=== PATIENT | male | born 1970 | race Caucasian/White ===

== ENCOUNTER 2017-04-28 22:34 | Emergency (ER) | payer BC ==
[~2017-04-28] VITALS: Ht 175.3 cm; Wt 72.3 kg
[~2017-04-28 22:34] MED LIST: FLUO10CA48 PO
[2017-04-28 22:39] VITALS: TEMP 36.7; Ht 175.3 cm; Wt 72.3 kg
[2017-04-28] MEDS ORDERED: ONDANSETRON INJ 2 MG/ML 2 ML VIAL IV STA (23:10)
[2017-04-28] MEDS ORDERED: KETOROLAC TROMETHAMINE 30 MG/ML VIAL IV STA (23:10)
[2017-04-28] MEDS ORDERED: MoRPHine SULFATE 10 MG/ML CARP/VIAL IV STA (23:10)
[2017-04-28] MEDS ORDERED: SODIUM CHLORIDE 0.9% 1000ML 1,000 ML IV STA (23:11)
[2017-04-28 23:19] LABS: BASO % 0.3 %; BASO ABS # 0.03 K/uL (0-0.2); COMPLETE YES; EOS % 0.6 %; HEMATOCRIT 44.6 % (42-52); IG% 0.4 %; LYMPH % 30.7 %; LYMPH ABS # 3.45 K/uL (1.2-3.4); MEAN CELL VOLUME 89.9 fL (80-100); MEAN CORPUSCULAR HEMOGLOBIN 29.8 pg (25-34); MEAN CORPUSCULAR HGB CONC 33.2 g/dl (32-36); MEAN PLATELET VOLUME 9.8 fL (7.4-10.4); MONO % 7.3 %; NEUT % 60.7 %; PLATELET COUNT 230 K/uL (130-400); RED BLOOD COUNT 4.96 M/uL (4.7-6.1); WHITE BLOOD COUNT 11.25 K/uL (4.8-10.8)
[2017-04-28] MEDS ORDERED: MoRPHine SULFATE 4 MG/ML 1 ML CARP\\VIAL IV STA (23:28)
--- NOTE | 2017-04-28 23:28 | EMERGENCY ROOM VISIT NOTE ---
History Report prepared by Vianney: Juhi Valentin Under the Supervision of: Dr. Marcela Rodrigues D.O. First contact with patient: 23:02 Chief Complaint: BACK PAIN Stated Complaint: SIDE PAIN History of Present Illness The patient is a 46 year old male who presents to the Emergency Room with complaints of worsening back pain starting an hour ago. The patient states he gets some relief from curling up in a ball. He states it started early today as a dull pain and has progressively worsened. The patient complains of right side flank pain and nausea. The patient denies a history of kidney stones, a UTI, fever, and chills. He notes that he recently has been drinking plenty of water. Source of History: patient Onset: an hour ago Position: back Quality: dull Timing: worsening Modifying Factors (Relieving): other (curled in a ball) Associated Symptoms: + nausea, No fevers, No chills Note: The patient complains of right flank pain. Review of Systems See HPI for pertinent positives & negatives. A total of 10 systems reviewed and were otherwise negative. Past Medical & Surgical Medical Problems: (1) Colon polyps Family History Patient reports no known family medical history. Social History Smoking Status: Never Smoker Drug Use: none Marital Status: Housing Status: lives with family Occupation Status: employed Current/Historical Medications No Active Prescriptions or Reported Meds Allergies Coded Allergies: No Known Allergies (Unverified , 04/28/17) Physical Exam Vital Signs Date Time Temp Pulse Resp B/P (MAP) Pulse Ox O2 Delivery O2 Flow Rate FiO2 04/29/17 02:41 75 18 116/77 97 Room Air 04/29/17 01:33 80 18 116/77 96 Room Air 04/28/17 23:53 70 18 123/80 99 Room Air 04/28/17 22:39 36.7 106 18 141/61 98 Room Air Physical Exam General: Extremely uncomfortable appearing. Moaning in pain. Unable to sit still. HEENT: Head - normocephalic and atraumatic Pupils are equal, round, and reactive to light. Extraocular eye muscles are intact, and sclera are anicteric. Nose - moist nasal mucosa without discharge. Mouth - moist buccal mucosa. Oropharynx is nonerythematous and there is no tonsillar exudate or edema noted. Neck: Supple; no cervical lymphadenopathy. Heart: Regular rate and rhythm. There is a normal S1 and S2 with no murmurs, clicks, or gallops appreciated. Lungs: Clear to auscultation bilaterally with no wheezes, rales, or rhonchi. Abdomen: Soft, completely nontender, nondistended, with good bowel sounds. There are no palpable pulsatile masses or hepatosplenomegaly. There is no guarding, rigidity, or rebound noted. Extremities: No evidence of cyanosis, clubbing, or edema. There are easily palpable peripheral pulses. Skin: warm and dry with good turgor and no rashes. Medical Decision & Procedures ER Provider Diagnostic Interpretation: Radiology results as stated below per my review and the radiologist's interpretation: CT ABDOMEN & PELVIS Without Contrast: 3 mm bladder side right UVJ stone. Mild proximal obstructive changes with some dilatation of the right ureter and renal pelvis. No significant right hydronephrosis appreciated. Nonobstructive bilateral renal stones. No evidence for appendicitis. Nonemergent/incidental findings include suspected lower lumbar laminectomy. Radiologist: Roe Craft M.D. Study ready at 23:41 and initial results transmitted at 00:01. Laboratory Results 04/28/17 23:00 Red Blood Count 4.96, Mean Corpuscular Volume 89.9, Mean Corpuscular Hemoglobin 29.8, Mean Corpuscular Hemoglobin Concent 33.2, Mean Platelet Volume 9.8, Neutrophils (%) (Auto) 60.7, Lymphocytes (%) (Auto) 30.7, Monocytes (%) (Auto) 7.3, Eosinophils (%) (Auto) 0.6, Basophils (%) (Auto) 0.3, Neutrophils # (Auto) 6.84, Lymphocytes # (Auto) 3.45, Monocytes # (Auto) 0.82, Eosinophils # (Auto) 0.07, Basophils # (Auto) 0.03 04/28/17 23:00 Test 04/28/17 23:00 04/29/17 01:17 White Blood Count 11.25 K/uL (4.8-10.8) Red Blood Count 4.96 M/uL (4.7-6.1) Hemoglobin 14.8 g/dL (14.0-18.0) Hematocrit 44.6 % (42-52) Mean Corpuscular Volume 89.9 fL (80-100) Mean Corpuscular Hemoglobin 29.8 pg (25-34) Mean Corpuscular Hemoglobin Concent 33.2 g/dl (32-36) Platelet Count 230 K/uL (130-400) Mean Platelet Volume 9.8 fL (7.4-10.4) Neutrophils (%) (Auto) 60.7 % Lymphocytes (%) (Auto) 30.7 % Monocytes (%) (Auto) 7.3 % Eosinophils (%) (Auto) 0.6 % Basophils (%) (Auto) 0.3 % Neutrophils # (Auto) 6.84 K/uL (1.4-6.5) Lymphocytes # (Auto) 3.45 K/uL (1.2-3.4) Monocytes # (Auto) 0.82 K/uL (0.11-0.59) Eosinophils # (Auto) 0.07 K/uL (0-0.5) Basophils # (Auto) 0.03 K/uL (0-0.2) RDW Standard Deviation 38.9 fL (36.4-46.3) RDW Coefficient of Variation 12.0 % (11.5-14.5) Immature Granulocyte % (Auto) 0.4 % Immature Granulocyte # (Auto) 0.04 K/uL (0.00-0.02) Anion Gap 7.0 mmol/L (3-11) Est Creatinine Clear Calc Drug Dose 77.8 ml/min Estimated GFR () 84.1 Estimated GFR (Non- 72.6 BUN/Creatinine Ratio 16.6 (10-20) Calcium Level 9.4 mg/dl (8.5-10.1) Urine Color YELLOW Urine Appearance CLEAR (CLEAR) Urine pH 7.0 (4.5-7.5) Urine Specific Morgan 1.027 (1.000-1.030) Urine Protein NEG (NEG) Urine Glucose (UA) NEG (NEG) Urine Ketones 2+ (NEG) Urine Occult Blood 1+ (NEG) Urine Nitrite NEG (NEG) Urine Bilirubin NEG (NEG) Urine Urobilinogen NEG (NEG) Urine Leukocyte Esterase NEG (NEG) Urine WBC (Auto) 1-5 /hpf (0-5) Urine RBC (Auto) 10-30 /hpf (0-4) Urine Hyaline Casts (Auto) 1-5 /lpf (0-5) Urine Epithelial Cells (Auto) 5-10 /lpf (0-5) Urine Bacteria (Auto) NEG (NEG) Laboratory results per my review. Medications Administered Medications (Trade) Dose Ordered Sig/David Route Start Time Stop Time Status Last Admin Dose Admin Ketorolac Tromethamine (Toradol Inj) 30 mg NOW STAT IV 04/28/17 23:10 04/28/17 23:12 DC 04/28/17 23:21 30 MG Morphine Sulfate (MoRPHine SULFATE INJ) 4 mg NOW STAT IV 04/28/17 23:10 04/28/17 23:12 DC 04/28/17 23:20 4 MG Ondansetron HCl (Zofran Inj) 4 mg NOW STAT IV 04/28/17 23:10 04/28/17 23:12 DC 04/28/17 23:20 4 MG Sodium Chloride 1,000 ml @ 999 mls/hr Q1H1M STAT IV 04/28/17 23:11 04/29/17 00:11 DC 04/28/17 23:20 999 MLS/HR Morphine Sulfate (MoRPHine SULFATE INJ) 2 mg NOW STAT IV 04/28/17 23:28 04/28/17 23:29 DC 04/28/17 23:51 2 MG Oxycodone/ Acetaminophen (Percocet 5/ 325MG Home Pack) 1 homepack UD ONCE PO 04/29/17 02:30 04/29/17 02:31 DC 04/29/17 02:40 1 HOMEPACK Procedure 2310: Ordered Zofran Inj 4 mg IV, Morphine Sulfate 4 mg IV, Toradol Inj 30 mg IV. 2311: Ordered NSS 1000 ml @ 999 mls/hr IV. 2328: Ordered Morphine Sulfate 2 mg IV. 0230: Ordered Oxycodone/ Acetaminophen 1 homepack PO. ED Course 2309: Past medical records reviewed. The patient was evaluated in room C8. A complete history and physical exam was performed. An IV lock was initiated and labs were drawn as above. 2310: Ordered Zofran Inj 4 mg IV, Morphine Sulfate 4 mg IV, Toradol Inj 30 mg IV. 2311: Ordered NSS 1000 ml @ 999 mls/hr IV. 2326:I reevaluated the patient and he was still in pain. 2328: Ordered Morphine Sulfate 2 mg IV. He went to CT scan for evaluation of a kidney stone. 0106: I reevaluated the patient and he is much more comfortable. He does not have anymore pain and is going to give a urine specimen. 0132: I reevaluated the patient and he is still pain free. I reviewed the results of the CT scan with him. 0226: Upon reevaluation, he is resting comfortably. I discussed findings and results with him. He verbalized agreement of the treatment plan. The patient was discharged home. 0230: Ordered Oxycodone/ Acetaminophen 1 homepack PO. Medical Decision This is a 46-year-old male patient who presents to the emergency department with severe right flank pain. Differential diagnoses include ureter colic, pyelonephritis, diverticulitis, colitis. LABS: Urine 2+ ketones, 1+ blood Glucose 108 BUN 20 Creatine 1.2 White blood cell count 11.2 Stable H&H The patient presented with severe right flank pain. CT scan confirmed a right- sided ureteral stone. There were no signs of urinary tract infection. The patient was observed here in the ER for some time and had no return of the pain. This small 3 mm stone most likely passed in the bladder. However, the patient was given specific follow-up instructions if the pain returned. [place] Drug Monitoring [place] Search Results: no issues identified Impression Primary Impression: Right ureteral calculus Scribe Attestation The scribe's documentation has been prepared under my direction and personally reviewed by me in its entirety. I confirm that the note above accurately reflects all work, treatment, procedures, and medical decision making performed by me. Departure Information Dispostion Home / Self-Care Prescriptions No Active Prescriptions or Reported Meds Referrals No Doctor, Assigned (PCP) Forms HOME CARE DOCUMENTATION FORM, IMPORTANT VISIT INFORMATION Patient Instructions My [facility] Additional Instructions Rest. Take plenty of clear liquids No work on Tuesday Percocet - 1-2 tabs. every 4 hours for severe pian. Return to the ER for worsening symptoms like intractable pain, fever, or vomiting
[2017-04-28 23:38] LABS: BUN/CREATININE RATIO 16.6 (10-20); CALCIUM 9.4 mg/dl (8.5-10.1); CREATININE 1.2 mg/dl (0.60-1.40); POTASSIUM 3.4 mmol/L (3.5-5.1)
[2017-04-29 01:43] LABS: URINE APPEARANCE CLEAR (CLEAR); URINE BILIRUBIN NEG (NEG); URINE COLOR YELLOW; URINE NITRITE NEG (NEG); URINE SPECIFIC GRAVITY 1.027 (1.000-1.030); UROBILINOGEN NEG (NEG)
[2017-04-29 01:50] LABS: MANUAL MICROSCOPIC REQUIRED? NO; REVIEW REQ? NO
[2017-04-29] MEDS ORDERED: PERCOCET HOME PACK PO ONE (02:30)
[2017-04-29 02:41] VITALS: BP 116/77; PULSE 75; O2SAT 97
--- NOTE | 2017-04-29 07:54 | DIAGNOSTIC IMAGING REPORT ---
CT SCAN OF THE ABDOMEN AND PELVIS WITHOUT IV CONTRAST CLINICAL HISTORY: Right flank pain. COMPARISON STUDY: No priors. TECHNIQUE: CT scan of the abdomen and pelvis is performed from the lung bases to the proximal femora. Images are reviewed in the axial, sagittal, and coronal planes. IV contrast was not administered for this examination as per the referring clinician. A dose lowering technique was utilized adhering to the principles of ALARA. CT DOSE: 518.72 mGy.cm FINDINGS: Lung bases: The heart is normal in size and without pericardial effusion. The lung bases are clear. Liver: The unenhanced liver is normal in size, contour, and attenuation. There is no intrahepatic biliary ductal dilatation. Gallbladder: Unremarkable. Spleen: Normal in size and attenuation. Pancreas: The unenhanced pancreas is grossly unremarkable. Adrenal glands: Unremarkable. Kidneys: The unenhanced kidneys are normal in size. There is a 4 mm calculus either protruding from the right vesicoureteral junction are located within the bladder lumen seen on image #366. There is mild to moderate right hydroureteronephrosis. There is mild associated perinephric and periureteric stranding. There are at least 3 additional nonobstructing right renal calculi measuring up to 3 mm. There are at least 5 tiny nonobstructing left renal calculi. No left-sided hydronephrosis is seen. There is no evidence of contour deforming renal mass lesion. Abdominal vasculature: The abdominal aorta is normal in course and caliber. Bowel: The small bowel and colon are normal in course and caliber. The appendix is well-visualized and normal. Peritoneum: There is no intraperitoneal free air or abdominal ascites. There is a small fat-containing umbilical hernia. Lymphadenopathy: None. Pelvic viscera: The bladder, prostate, and seminal vesicles are normal as imaged.. Numerous phleboliths are identified. Skeletal structures: No lytic or blastic lesions are seen. There is a large posterior disc bulge seen at L4-L5. IMPRESSION: 1. There is a 4 mm calculus identified which either protrudes from the right vesicoureteral junction or is located in the bladder adjacent to the trigone with mild to moderate right hydroureteronephrosis. 2. Additional bilateral nonobstructing renal calculi as above. Electronically signed by: Fran Mishra M.D. 04/29/2017 7:53 AM Dictated Date/Time: 04/29/2017 7:47 AM
== END 2017-04-29 02:46 | disposition home or self-care (01) ==
LOC: C.EDB 22:35 → C.EDC 04-29 02:46
DX: N20.1 Calculus of ureter (principal); Z86.010 Personal history of colon polyps

== ENCOUNTER 2018-02-23 14:56 | Emergency (ER) | payer BC ==
[~2018-02-23] VITALS: Ht 175.3 cm; Wt 75.6 kg
[2018-02-23 15:00] VITALS: TEMP 36.7; Ht 175.3 cm; Wt 75.6 kg
[2018-02-23] MEDS ORDERED: DiphenhydrAMINE HCL 50 MG/ML VIAL IV STA (15:11)
[2018-02-23] MEDS ORDERED: RANITIDINE HCL 50 MG/100 ML D5W IV STA (15:11)
[2018-02-23] MEDS ORDERED: SODIUM CHLORIDE 0.9% 500ML 500 ML IV STA (15:11)
[2018-02-23] MEDS ORDERED: DEXAMETHASONE INJ 10 MG in SYRINGE 0 ML IV STA (15:11)
[2018-02-23] MEDS ORDERED: DEXAMETHASONE **PF** INJ 10 MG/ML VIAL ONE (15:25)
[2018-02-23] MEDS ORDERED: RANITIDINE IV 50 MG in DEXTROSE 5% 100ML 100 ML IV ONE (15:30)
[2018-02-23 15:34] VITALS: O2SAT 96
[2018-02-23 16:45] VITALS: BP 115/76; PULSE 61; O2SAT 96
[2018-02-23] MEDS ORDERED: METH4PAK PO (17:04)
[2018-02-23] MEDS ORDERED: EPP3/2 IM (17:04)
--- NOTE | 2018-02-24 01:34 | EMERGENCY ROOM VISIT NOTE ---
History First contact with patient: 15:04 Chief Complaint: ALLERGIC REACTION Stated Complaint: BEE STING REACTION Nursing Triage Summary: Patient was stung by two bees at 1400, one sting on left hand and one behind left knee. Localized swelling and itching per patient. Denies SOB or chest pain. 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 The patient reports that he was stung on the left hand and back of the left knee. The patient reports itching of his armpits and other areas of the body. He has not noticed any chest pain, shortness of breath , palpitations, lip/tongue/throat swelling or other concerning symptoms. The patient reports a remote history of bee sting as a child without any adverse reaction. He denies any other known seasonal, food or environmental allergies. He denies history of asthma or heart disease. He rates his localized discomfort a 3 out of 10. The patient did take Benadryl 25 mg prior to arrival , and has not noticed any difference after doing so. Review of Systems HEENT: Denies dizziness, visual problems, hearing loss, tinnitus. Denies difficulty swallowing or oral lesions. PULMONARY: Denies cough, shortness of breath, sputum production or hemoptysis. CARDIOVASCULAR: Denies chest pain, palpitations, dyspnea on exertion, orthopnea or peripheral edema. GASTROINTESTINAL: Denies diarrhea, constipation, nausea, vomiting, or abdominal pain. GENITOURINARY: Denies dysuria, frequency, urgency or nocturia. NEUROLOGIC: Denies history of epilepsy, CVA, TIA or chronic headaches. MUSCULOSKELETAL: Denies history of joint tenderness/swelling. SKIN: Denies rashes or lesions. PSYCHIATRIC: Denies history of depression or mental illness. ENDOCRINE: Denies history of diabetes or thyroid disorders. Past Medical/Surgical History Medical Problems: (1) Colon polyps Family History Patient reports no known family medical history. Social History Smoking Status: Never Smoker Drug Use: none Marital Status: Housing Status: lives with family Occupation Status: employed Current/Historical Medications Scheduled Epinephrine (Epipen), 0.3 MG IM UD Methylprednisolone (Medrol Dosepak), 0 PO DAILY Physical Exam Vital Signs Date Time Temp Pulse Resp B/P (MAP) Pulse Ox O2 Delivery O2 Flow Rate FiO2 02/23/18 16:45 61 18 115/76 96 Room Air 02/23/18 15:34 96 Room Air 02/23/18 15:02 Room Air 02/23/18 15:00 36.7 78 18 135/78 97 Room Air Physical Exam CONSTITUTIONAL: Healthy and well nourished. Alert and oriented X 3 with positive affect. Patient does not appear in any acute distress. HEENT: Normocephalic, atraumatic. Pupils equal, round and reactive. No facial erythema, edema, conjunctival injection or pallor. OROPHARYNX: No evidence for angioedema. NECK: Full active range of motion without discomfort. RESPIRATORY: Clear to auscultation bilaterally with no wheezing, crackles, rhonchi or stridor. CARDIOVASCULAR: Regular rate and rhythm with no murmurs, rubs or gallops. GASTROINTESTINAL: Bowel sounds present in all quadrants. MUSCULOSKELETAL: Full range of motion of all joints without discomfort. INTEGUMENTARY: Patient has soft tissue edema and erythema of the left popliteal region and left dorsal hand. Patient also has erythema of bilateral axillary, and a few lesions on the upper back. HEMATOLOGIC: No ecchymosis or petechiae noted. NEUROLOGIC: No focal neurologic deficits noted. Medical Decision & Procedures Medications Administered Medications (Trade) Dose Ordered Sig/David Route Start Time Stop Time Status Last Admin Dose Admin Diphenhydramine HCl (Benadryl Inj) 25 mg NOW STAT IV 02/23/18 15:11 02/23/18 15:13 DC 02/23/18 15:30 25 MG Sodium Chloride 500 ml @ 999 mls/hr Q31M STAT IV 02/23/18 15:11 02/23/18 15:41 DC 02/23/18 15:30 999 MLS/HR Ranitidine HCl 50 mg/Dextrose 102 ml @ 204 mls/hr TODAY@1530 ONCE IV 02/23/18 15:30 02/23/18 15:59 DC 02/23/18 15:40 204 MLS/HR Dexamethasone Sodium Phosphate (Dexamethasone Inj Pf) 10 mg STK-MED ONCE .ROUTE 02/23/18 15:25 02/23/18 15:26 DC 02/23/18 15:30 10 MG ED Course History and physical exam were performed. Nurse's notes were reviewed. Vital signs were reviewed and were normal. Because the patient is developing hives away from the primary sites of the bee stings, but I did suggest parenteral treatment. The patient was in agreement. IV access was established. The patient was administered a normal saline 500 cc bolus, along with IV Benadryl, Zantac and Decadron. He was also placed on telemetry monitor. An ice pack was provided for his hand and knee. The patient was observed for an hour without any adverse reaction, and had almost complete resolution of the erythema on the dorsum of the hand and posterior knee region, as well as the axilla and upper back. Mild edema of the popliteal space and left dorsal hand was noted. Review of his telemetry monitor history did not show any acute changes. The patient reported significant resolution of his pruritus, and felt well enough for discharge home. The patient was encouraged to continue with Benadryl and Zantac for the next 2- 3 days. He will be provided prescriptions for an EpiPen 2 pack and a Medrol Dosepak. The patient was instructed to keep cool, and intermittently apply ice to the areas of swelling and itch. If he has any significant reaction, he was instructed to administer the EpiPen, and return to the emergency department immediately. The patient was happy with plan of care, and voiced understanding of all discharge instructions. Medical Decision Patient presents with allergic reaction to bee stings. The patient currently does not have any evidence for severe anaphylactic reaction. The patient has not exhibited any angioedema, palpitations, shortness of breath or chest pain; he has, however, developed other urticaria away from the primary sites, concerning for impending severe allergic reaction. Parenteral treatment and cardiac monitoring was performed while in the emergency department. Patient remained hemodynamically stable. He also had complete resolution of the urticaria prior to discharge. I do feel that he is safe for discharge with instructions to return for worsening symptoms. [place] Drug [place] Search Results: patient reviewed within database Medication Reconcilliation Current Medication List: was personally reviewed by me Blood Pressure Screening Patient's blood pressure: Normal blood pressure Impression Primary Impression: Anaphylaxis Departure Information Prescriptions Methylprednisolone (MEDROL DOSEPAK) 4 Mg Tobi 0 PO DAILY, #1 PKT Prov: Yosvany Rodriguez PA 02/23/18 Epinephrine (EPIPEN) 0.3 Mg/0.3 Ml Inj 0.3 MG IM UD, #2 UNITS Prov: Yosvany Rodriguez PA 02/23/18 Referrals Escobar Valladares III, M.D. (PCP) Patient Instructions My [facility] Problem Qualifiers Primary Impression: Anaphylaxis Encounter type: initial encounter Qualified Codes: T78.2XXA - Anaphylactic shock, unspecified, initial encounter
== END 2018-02-23 17:21 | disposition home or self-care (01) ==
LOC: C.EDB 14:58 → C.EDD 17:21
DX: T63.441A Toxic effect of venom of bees, accidental (unintentional), initial encounter (principal)